=== PATIENT | male | born 1980 | race Two or more races ===

== ENCOUNTER 2018-12-28 19:07 | Inpatient (IN) | payer MEDICAID ==
[~2018-12-28] VITALS: Ht 172.7 cm; Wt 130.2 kg
--- NOTE | 2018-12-28 19:28 | Emergency Room Report ---
History of Present Illness General Chief Complaint: Chest Pain Source: Patient Present Illness HPI Patient is a 38-year-old male presented after increased chest discomfort. Patient reports having increased pleuritic type pain which had been present for approximately 1 day. This was not changed by position. Patient states this was worsened. Patient states he had associated blurring vision to the left eye. He denies any exertional change to the pain. He reports having a recent increase in hematuria blood in his ejaculate as well as some left-sided flank pain. He had noticed increased leg swelling gradual onset.Patient had prior history of hypertension but does not take any medications. He denies any prior cardiac conditions. Allergies: Coded Allergies: No Known Allergies (Unverified , 12/28/18) Patient History Past Medical History: see triage record Reviewed Nursing Documentation: PMH: Agreed; PSxH: Agreed Nursing Documentation-PMH Past Medical History: No History, Except For Hx Hypertension: Yes Review of Systems All Other Systems: negative except mentioned in HPI Physical Exam Vital Signs Date Time Temp Pulse Resp B/P (MAP) Pulse Ox O2 Delivery O2 Flow Rate FiO2 12/28/18 19:21 98.1 81 16 95 Room Air Sp02 EP Interpretation: reviewed, normal General Appearance: normal inspection, well appearing, no apparent distress, alert, GCS 15, obese Head: atraumatic Eyes: left eye Fundiscopic - no hemorrhages seen; bilateral eye PERRL ENT: normal ENT inspection, hearing grossly normal, normal voice Neck: normal inspection, full range of motion, supple, no bony tend Respiratory: normal inspection, lungs clear, normal breath sounds, no respiratory distress, no retraction, no wheezing Cardiovascular #1: regular rate, rhythm, edema Gastrointestinal: normal inspection, normal bowel sounds, non tender, soft, no guarding, no hernia Genitourinary: no CVA tenderness Musculoskeletal: normal inspection, back normal, normal range of motion Neurologic: normal inspection, alert, oriented x3, responsive, filter washer and presser III-XII nml as tested, speech normal Psychiatric: normal inspection, judgement/insight normal, mood/affect normal Skin: normal inspection, normal color, no rash Medical Decision Making Diagnostic Impression: Primary Impression: Chest pain Additional Impressions: Non-STEMI (non-ST elevated myocardial infarction) Uncontrolled hypertension ER Course Patient presented for chest pain. Differential diagnosis include was not limited to aortic dissection, hypertensive crisis, myocardial infarction among others. Patient was noted to have constant pain for approximately 24 hours. Patient reports having taken clonidine and having poorly controlled blood pressure chronically. Patient's initial troponin was noted to be positive. EKG interpreted by me showed normal sinus rhythm with left ventricular hypertrophy and nonspecific ST abnormalities. CT of the chest was ordered due to the patient's visual changes as well as chest discomfort. CT of chest read by radiology showed no acute dissection, pericardial effusion or pulmonary embolism. See full report. Patient was initially given Norvasc for blood pressure as well as nitroglycerin. He was subsequently given IV metoprolol and Vasotec. Patients visual changes were noted to improve after blood pressure improvements.Given the patient's constant chest pain and positive troponin patient will be hospitalized for possible acs. Dr. Mason Weiss was contacted for inpatient management due to panel physician. Laboratory Tests Test 12/28/18 19:35 12/28/18 21:35 12/29/18 04:35 White Blood Count 8.8 K/UL (4.8-10.8) Red Blood Count 4.93 M/UL (4.70-6.10) Hemoglobin 14.1 G/DL (14.2-18.0) L Hematocrit 40.1 % (42.0-52.0) L Mean Corpuscular Volume 81 FL (80-99) Mean Corpuscular Hemoglobin 28.5 PG (27.0-31.0) Mean Corpuscular Hemoglobin Concent 35.1 G/DL (32.0-36.0) Red Cell Distribution Width 11.9 % (11.6-14.8) Platelet Count 231 K/UL (150-450) Mean Platelet Volume 7.7 FL (6.5-10.1) Neutrophils (%) (Auto) 61.2 % (45.0-75.0) Lymphocytes (%) (Auto) 28.8 % (20.0-45.0) Monocytes (%) (Auto) 6.1 % (1.0-10.0) Eosinophils (%) (Auto) 2.9 % (0.0-3.0) Basophils (%) (Auto) 1.0 % (0.0-2.0) Prothrombin Time 10.4 SEC (9.30-11.50) Prothrombin Time INR 1.0 (0.9-1.1) PTT 26 SEC (23-33) 49 SEC (23-33) H D-Dimer 0.23 mg/L FEU (0.00-0.49) Urine Color Pale yellow Urine Appearance Clear Urine pH 5 (4.5-8.0) Urine Specific Mead 1.015 (1.005-1.035) Urine Protein Negative (NEGATIVE) Urine Glucose (UA) Negative (NEGATIVE) Urine Ketones Negative (NEGATIVE) Urine Blood 1+ (NEGATIVE) H Urine Nitrite Negative (NEGATIVE) Urine Bilirubin Negative (NEGATIVE) Urine Urobilinogen Normal MG/DL (0.0-1.0) Urine Leukocyte Esterase Negative (NEGATIVE) Urine RBC 2-4 /HPF (0 - 0) H Urine WBC 0-2 /HPF (0 - 0) Urine Squamous Epithelial Cells None /LPF (NONE/OCC) Urine Bacteria Few /HPF (NONE) Sodium Level 139 MMOL/L (136-145) Potassium Level 3.9 MMOL/L (3.5-5.1) Chloride Level 103 MMOL/L (98-107) Carbon Dioxide Level 28 MMOL/L (21-32) Anion Gap 8 mmol/L (5-15) Blood Urea Nitrogen 16 mg/dL (7-18) Creatinine 0.9 MG/DL (0.55-1.30) Estimate Glomerular Filtration Rate > 60 mL/min (>60) Glucose Level 100 MG/DL (74-106) Calcium Level 9.2 MG/DL (8.5-10.1) Total Bilirubin 0.4 MG/DL (0.2-1.0) Aspartate Amino Transferase (AST) 27 U/L (15-37) Alanine Aminotransferase (ALT) 40 U/L (12-78) Alkaline Phosphatase 113 U/L (46-116) Troponin I 0.703 ng/mL (0.000-0.056) 0.671 ng/mL (0.000-0.056) Pending Total Protein 7.4 G/DL (6.4-8.2) Albumin 3.8 G/DL (3.4-5.0) Globulin 3.6 g/dL Albumin/Globulin Ratio 1.1 (1.0-2.7) Urine Opiates Screen Negative (NEGATIVE) Urine Barbiturates Screen Negative (NEGATIVE) Phencyclidine (PCP) Screen Negative (NEGATIVE) Urine Amphetamines Screen Negative (NEGATIVE) Urine Benzodiazepines Screen Negative (NEGATIVE) Urine Cocaine Screen Negative (NEGATIVE) Urine Marijuana (THC) Screen Negative (NEGATIVE) EKG Diagnostic Results Rate: normal Rhythm: NSR ST Segments: no acute changes ASA given to the pt in ED: Yes Last Vital Signs Date Time Temp Pulse Resp B/P (MAP) Pulse Ox O2 Delivery O2 Flow Rate FiO2 12/28/18 19:21 98.1 81 16 95 Room Air Status: improved Disposition: ADMITTED INPATIENT Condition: Serious Dejon Montenegro MD December 28, 2018 19:28
[2018-12-28 19:35] VITALS: BP 201/122
--- NOTE | 2018-12-28 19:35 | NUR ---
ER Nurse Note: Pt came from home c/o mid to left sided chest pain, rated 8/10 sharp pain since 12/27. Pt stated he has an acute onset of blurry vision on left eye. Pt a&ox4, BP at triage is 200/120; ERMD aware. EKG done at on arrival. Will continue to montior
[2018-12-28 19:58] LABS: EOSINOPHILS % (AUTO) 2.9 % (0.0-3.0); HEMATOCRIT 40.1 % (42.0-52.0); HEMOGLOBIN 14.1 G/DL (14.2-18.0); LYMPHOCYTES % (AUTO) 28.8 % (20.0-45.0); MEAN CORPUSCULAR VOLUME 81 FL (80-99); MONOCYTES % (AUTO) 6.1 % (1.0-10.0); NEUTROPHILS % (AUTO) 61.2 % (45.0-75.0); PLATELET COUNT 231 K/UL (150-450); RED BLOOD COUNT 4.93 M/UL (4.70-6.10); RED CELL DISTRIBUTION WIDTH 11.9 % (11.6-14.8); WHITE BLOOD COUNT 8.8 K/UL (4.8-10.8)
[2018-12-28 20:00] VITALS: BP 190/114
[2018-12-28 20:00] LABS: ANION GAP 8 mmol/L (5-15); BLOOD UREA NITROGEN 16 mg/dL (7-18); CALCIUM 9.2 MG/DL (8.5-10.1); CARBON DIOXIDE 28 MMOL/L (21-32); CHLORIDE 103 MMOL/L (98-107); CREATININE 0.9 MG/DL (0.55-1.30); POTASSIUM 3.9 MMOL/L (3.5-5.1); SODIUM 139 MMOL/L (136-145)
[2018-12-28 20:01] LABS: APPEARANCE,URINE CLEAR; BILIRUBIN, URINE NEGATIVE (NEGATIVE); COLOR,URINE PALE YELLOW; GLUCOSE, URINE (UA) NEGATIVE (NEGATIVE); KETONES,URINE NEGATIVE (NEGATIVE); LEUKOCYTE ESTERASE ,URINE NEGATIVE (NEGATIVE); NITRITE,URINE NEGATIVE (NEGATIVE); PH,URINE 5 (4.5-8.0); PROTEIN,URINE NEGATIVE (NEGATIVE); UROBILINOGEN,URINE NORMAL MG/DL (0.0-1.0)
[2018-12-28 20:06] LABS: ALANINE AMINOTRANSFERASE 40 U/L (12-78); ALBUMIN 3.8 G/DL (3.4-5.0); ALBUMIN/GLOBULIN RATIO 1.1 (1.0-2.7); ALKALINE PHOSPHATASE 113 U/L (46-116); ASPARTATE AMINO TRANSFERASE 27 U/L (15-37); BILIRUBIN,TOTAL 0.4 MG/DL (0.2-1.0)
[2018-12-28] MEDS ORDERED: Isovue-370 150ml vial INJ PRN (20:15)
[2018-12-28 21:00] VITALS: BP 178/102
[2018-12-28] MEDS ORDERED: Aspirin Baby 81mg ORAL ONE (21:15)
[2018-12-28] MEDS ORDERED: Nitroglycerin Subl 0.4mg tab SL PRN (21:15)
[2018-12-28] MEDS ORDERED: Enalaprilat 2.5mg/2ml Inj IV ONE (21:45)
[2018-12-28 22:00] VITALS: BP 184/100
[2018-12-28] MEDS ORDERED: Metoprolol 5mg/5ml Inj IVP ONE (22:15)
[2018-12-28] MEDS ORDERED: Heparin 5000 units/ml inj IV ONE (22:30)
[2018-12-28] MEDS ORDERED: Heparin 25,000u/D5W 500ml 500 ML IV SCH (22:30)
--- NOTE | 2018-12-28 22:30 | NUR ---
ER Nurse Note: Pt wt retaken for heparin drip per pharmacy request. Pharmacy notifed of weight and recommended to change dosage from order. [facility] followed up and told Eliu that per ERMD orders, starting dose is 12 cc/hr with a wt of 132.4kg. Pt was given 5,000U of heparin IV, then started heparin drip. BP decreasing. All orders completed per ERMD orders; will continue to montior.
[2018-12-28 23:20] VITALS: BP 154/89
--- NOTE | 2018-12-28 23:20 | NUR ---
ER Nurse Note: Report given to REYNALDO Garcia for continuity of care. Pt a&ox4, VSS-BP controlled, no signs of distress. IV patent, infusing heparin 12cc/hr per ERMD orders. Left with all belongings.
[2018-12-29] VITALS: BP 145/89
--- NOTE | 2018-12-29 | NUR ---
NURSE NOTES: Received report from Oswald Min RN at 2310. Patient arrived on unit at 2320. No s/s of acute distress noted. A/O x4. Sinus rhythm on quality assurance monitor body. Saturating well on room air. Left foot soft tissue mass noted. Right AC 20g IV running heparin drip. Bed locked in lowest position with side rails up x2. Call light left within reach. Will continue to monitor. Left message for Dr. Abhishek MD for admission orders. Awaiting response.
[2018-12-29] MEDS ORDERED: CIPROFLOXACIN500 MG PO (00:55)
[2018-12-29 04:00] VITALS: BP 159/97
--- NOTE | 2018-12-29 05:35 | NUR ---
NURSE NOTES: Admission orders received from Dr. Abhishek MD. Noted and carried out.
[2018-12-29] MEDS ORDERED: Heparin 5000 units/ml inj IV SCH ×2 (06:00→20:49)
[2018-12-29] MEDS: Heparin 25,000u/D5W 500ml 500 ML IV SCH ×2 (06:18→12:41)
--- NOTE | 2018-12-29 07:15 | NUR ---
OBTAINED REPORT FROM TRUMAN JACOBS, PT RESTING IN BED FREE FROM APPARENT DISTRESS.
--- NOTE | 2018-12-29 07:15 | NUR ---
HAND-OFF: Report given to Zana Chua RN.
[2018-12-29 08:00] VITALS: BP 154/90
[2018-12-29] MEDS: Ciprofloxacin 500mg tab ORAL SCH ×2 (09:25→20:35)
[2018-12-29] MEDS: Aspirin Baby 81mg ORAL SCH (09:25)
[2018-12-29 09:26] LABS: CHOLESTEROL 137 MG/DL (< 200); HDL CHOLESTEROL 36 MG/DL (40-60); TRIGLYCERIDES 85 MG/DL (30-150)
[2018-12-29] MEDS: Nitroglycerin 2% oint pkt TOPIC SCH ×2 (09:26→18:37)
--- NOTE | 2018-12-29 10:37 | Diagnostic Imaging Report ---
Indication: Chest pain Technique: Continuous helical transaxial imaging of the chest was obtained from the thoracic inlet to the upper abdomen during rapid intravenous contrast administration. Arterial phase of enhancement obtained. Coronal 2-D reformats were also obtained and maximum intensity projection images in multiple planes. Study obtained in a Siemens sensation [address] Automatic Exposure Control was utilized. Total Dose length Product (DLP): 1428.[address] Dose Index Volume (CTDIvol): 40.83 mGy Comparison: None Findings: The pulmonary artery is well opacified and shows no filling defects. There is no adenopathy, pleural or pericardial effusions are identified. There is no aortic dissection or aneurysm identified within the chest. The lungs are clear. The liver is hypodense consistent with fatty infiltration. There is some breathing motion limiting visualization of the upper abdomen Impression: No evidence of acute CVA, aortic dissection or aneurysm. Fatty liver The CT scanner at [facility] is accredited by the [employer] and the scans are performed using dose optimization techniques as appropriate to a performed exam including Automatic Exposure control.
[2018-12-29 12:00] VITALS: BP 142/90
--- NOTE | 2018-12-29 13:00 | NUR ---
RECEIVED PHONE CALL FROM MD ADRIAN MD GIVEN FULL REPORT AND MADE AWARE OF MOST CURRENT LABS (TROPONIN). NO NEW ORDERS NOTED. MD MADE AWARE OF RESULTS OF CHEST/THORAX CTA.
--- NOTE | 2018-12-29 13:10 | NUR ---
SPOKE WITH PHARMACIST AND WAS MADE AWARE OF MOST CURRENT COAGULATION STUDIES. RN INSTRUCTED BY PHARMACIST TO HOLD HEPARIN DRIP FOR ONE HOUR AND RESTART WITH NEW RATE AT 34.4ML/HR AND PT WILL BE ON HEPARIN DRIP AT 13 UNITS/KG/HR PER PROTOCOL. TIMED PTT TO BE TAKEN 6HRS FROM TIME DRIP IS RESTARTED.
--- NOTE | 2018-12-29 14:00 | History and Physical Report ---
DATE OF ADMISSION: 12/28/2018 HISTORY OF PRESENT ILLNESS: This is a 38-year-old male, admitted with elevated blood pressure and chest discomfort. The patient has some associated blurry vision. Denies any other significant medical problems. PAST MEDICAL HISTORY: Essentially negative. MEDICATIONS: Negative. REVIEW OF SYSTEMS: Notable for possible hypertension. PHYSICAL EXAMINATION: GENERAL: A well-developed male, comfortable at present. VITAL SIGNS: Noted. Blood pressure 159/97, pulse 60, respirations 16. HEENT: Negative. NECK: Supple. LUNGS: Clear. CARDIAC: S1 and S2. Regular rate and rhythm. ABDOMEN: Soft, nontender. EXTREMITIES: No edema. LABORATORY DATA: Reviewed. Troponin is elevated on serial evaluation. IMPRESSION: Chest pain, possible non-STEMI CO, hypertension. RECOMMENDATIONS: Supportive care. Heparin drip. Cardiology evaluation. Nitrates, blood pressure support, and further intervention. Pending cardiac evaluation. Mason Weiss M.D. DR: TUNDE JOB#: [id number] CC: SACHA
[2018-12-29] MEDS ORDERED: Heparin 25,000u/D5W 500ml 500 ML IV SCH ×2 (14:15→20:50)
--- NOTE | 2018-12-29 14:30 | NUR ---
HEPARIN DRIP NOW STARTED AT 13UNITS/KG/HR, IV RATE ADJUSTED TO 34.4ML/HR PER PHARMACY PROTOCOL. PT TOLERATING IV DRIP WELL. NO SIGNS OF BLEEDING NOTED. TIMED PTT TO BE DRAWN TODAY AT 2029 PER FACILITY PROTOCOL.
[2018-12-29 16:00] VITALS: BP 140/80
--- NOTE | 2018-12-29 17:21 | NUR ---
CASE MANAGEMENT: REVIEW 38Y/M PRESENTED TO ED FROM HOME CC: CHEST PAIN . BLURRY VISION IN LEFT EYE SI: HTN CRISIS . NSTEMI T 98.1 HR 90 RR 16 BP 201/122 SAT 95% ROOM AIR TROPONIN I 0.703 IS: LASIX IV X1 NORVASC PO X1 ASA PO X1 CLONIDINE PO X1 VASOTEC IV X1 LOPRESSOR IV X1 HEPARIN IV X1 PATIENT ADMITTED TO STEP DOWN UNIT 12/28/2018 DCP: PATIENT IS FROM HOME PLAN: 2D ECHO
--- NOTE | 2018-12-29 17:52 | NUR ---
NURSE NOTES: ECHO DONE TODAY, RESULTS NOT POSTED (PENDING).
--- NOTE | 2018-12-29 19:30 | NUR ---
NURSE NOTES: GAVE FULL REPORT TO TRUMAN JACOBS. PT IN BED RESTING COMFORTABLY WITH NO SIGN OF APPARENT DISTRESS. HEPARIN DRIP VERIFIED AT END OF SHIFT WITH TRUMAN JACOBS. RATES NOTED CORRECT PER PHARMACY PROTOCOL. PT ON 13 UNITS/KG/HR AND IV RATE AT 34.437 ML/HR; NO ADVERSE REACTION NOTED FROM HEPARIN DRIP,PT TOLERATING WELL. NO SIGNS OF BLEEDING OR BRUISING NOTED. NEXT DUE PTT LAB DRAW TODAY AT 2030.
--- NOTE | 2018-12-29 19:30 | NUR ---
NURSE NOTES: Received report from Zana Chua RN. Patient is awake in bed, watching television, A/O x4. No s/s of acute distress noted. Sinus rhythm on cardiac/vascular sonographer. Saturating well on room air. Right AC 20g IV running heparin drip. Bed locked in lowest position with side rails up x2. Call light left within reach. Will continue to monitor. Family remains at bedside.
[2018-12-29 20:00] VITALS: BP 150/103
[2018-12-30] VITALS: BP 150/95
[2018-12-30 04:00] VITALS: BP 167/108
[2018-12-30 04:32] LABS: EOSINOPHILS % (AUTO) 3.9 % (0.0-3.0); HEMOGLOBIN 14.6 G/DL (14.2-18.0); LYMPHOCYTES % (AUTO) 32.2 % (20.0-45.0); MEAN CORPUSCULAR VOLUME 84 FL (80-99); MONOCYTES % (AUTO) 7.3 % (1.0-10.0); NEUTROPHILS % (AUTO) 55.6 % (45.0-75.0); PLATELET COUNT 246 K/UL (150-450); RED BLOOD COUNT 5.03 M/UL (4.70-6.10); RED CELL DISTRIBUTION WIDTH 12.4 % (11.6-14.8); WHITE BLOOD COUNT 6.9 K/UL (4.8-10.8)
[2018-12-30] MEDS ORDERED: Heparin 25,000u/D5W 500ml 500 ML IV SCH (04:45)
[2018-12-30 04:57] LABS: ANION GAP 6 mmol/L (5-15); BLOOD UREA NITROGEN 15 mg/dL (7-18); CALCIUM 8.9 MG/DL (8.5-10.1); CARBON DIOXIDE 29 MMOL/L (21-32); CHLORIDE 104 MMOL/L (98-107); CREATININE 0.9 MG/DL (0.55-1.30); POTASSIUM 3.4 MMOL/L (3.5-5.1); SODIUM 139 MMOL/L (136-145)
[2018-12-30] MEDS: Heparin 25,000u/D5W 500ml 500 ML IV SCH ×2 (05:09→17:22)
[2018-12-30 06:45] VITALS: BP 164/98
--- NOTE | 2018-12-30 07:15 | NUR ---
NURSE NOTES: Dr. Abhishek MD made aware of patient's potassium. New order received. Noted and carried out.
--- NOTE | 2018-12-30 07:25 | NUR ---
HAND-OFF: Report given to Vijaya Quinteros RN.
--- NOTE | 2018-12-30 07:30 | NUR ---
NURSE NOTES: NURSE NOTES: Report received from Karol Villeda RN.Pt still asleep but easily awaken with verbal command,denies any sob or chest pain,SR on the monitor,IV site to RAC intact with Heparin drip at 15 units/kg /hr running at 39.735 ml/hr,skin warm and dry ,SR up x2 HOB elevated,bed lock in lowest position, at bedside,will continue with plans of care.
[2018-12-30] MEDS: Aspirin Baby 81mg ORAL SCH (09:25)
[2018-12-30] MEDS: Ciprofloxacin 500mg tab ORAL SCH ×2 (09:25→21:03)
[2018-12-30] MEDS: Nitroglycerin 2% oint pkt TOPIC SCH ×2 (09:25→18:23)
--- NOTE | 2018-12-30 09:44 | General Progress Note ---
Assessment/Plan Assessment/Plan: possible NSTEMI elevated troponin low HDL PLAN await cardiology called Dr. Nieto 12/30 same for now impression, plan, and exam edited and reviewed in detail care discussed with RN Subjective Allergies: Coded Allergies: No Known Allergies (Unverified , 12/28/18) Subjective NAD Objective Last 24 Hour Vital Signs Date Time Temp Pulse Resp B/P (MAP) Pulse Ox O2 Delivery O2 Flow Rate FiO2 12/30/18 09:25 164/98 12/30/18 08:00 67 12/30/18 06:45 164/98 (120) 12/30/18 05:01 167/108 12/30/18 04:00 71 12/30/18 04:00 Room Air 12/30/18 04:00 97.5 66 18 167/108 (127) 98 12/30/18 00:00 97.9 74 18 150/95 (113) 96 12/30/18 00:00 Room Air 12/29/18 23:34 71 12/29/18 20:00 98.2 81 20 150/103 (119) 98 12/29/18 20:00 Room Air 12/29/18 19:25 83 12/29/18 18:37 149/90 12/29/18 16:00 98.6 70 20 140/80 (100) 100 12/29/18 16:00 Room Air 12/29/18 16:00 77 12/29/18 12:00 98.0 73 18 142/90 (107) 100 12/29/18 12:00 71 12/29/18 12:00 Room Air Intake and Output 12/29/18 12/30/18 19:00 07:00 Intake Total 900 ml 495.52381 ml Output Total 0 ml Balance 900 ml 495.12645 ml Intake Oral 900 ml 100 ml IV Total 395.76502 ml Output Stool Total 0 ml # Voids 5 2 Laboratory Tests 12/29/18 12:15: Activated Partial Thromboplast Time 131H 12/29/18 14:10: Troponin I 0.632H 12/29/18 20:25: Activated Partial Thromboplast Time 46H 12/29/18 22:10: Troponin I 0.554H 12/30/18 03:35: White Blood Count 6.9, Red Blood Count 5.03, Hemoglobin 14.6, Hematocrit 42.0, Mean Corpuscular Volume 84, Mean Corpuscular Hemoglobin 29.0, Mean Corpuscular Hemoglobin Concent 34.7, Red Cell Distribution Width 12.4, Platelet Count 246, Mean Platelet Volume 8.4, Neutrophils (%) (Auto) 55.6, Lymphocytes (%) (Auto) 32.2, Monocytes (%) (Auto) 7.3, Eosinophils (%) (Auto) 3.9H, Basophils (%) (Auto ) 1.0, Activated Partial Thromboplast Time 100H, Sodium Level 139, Potassium Level 3.4L, Chloride Level 104, Carbon Dioxide Level 29, Anion Gap 6, Blood Urea Nitrogen 15, Creatinine 0.9, Estimat Glomerular Filtration Rate > 60, Glucose Level 111H, Calcium Level 8.9 Height (Feet): 5 Height (Inches): 8.00 Weight (Pounds): 292 Objective WDWN NAD clear breath sounds bilaterally without rhonchi or wheeze [id number] without MRG NABS nontender no HSM no CCE nonfocal Mason Weiss MD December 30, 2018 09:44
[2018-12-30 12:00] VITALS: BP 159/102
[2018-12-30 16:00] VITALS: BP 155/114
--- NOTE | 2018-12-30 16:00 | NUR ---
NURSE NOTES: Dr Bee at bedside,ordered a Lexiscan Myoview Stress test in am.Dr Bee discussed procedure with pt,verbalized understanding.
--- NOTE | 2018-12-30 16:08 | Cardiology Progress Note ---
Assessment/Plan Assessment/Plan The patient is seen and examined, full consult note is dictated. Objective Last 24 Hour Vital Signs Date Time Temp Pulse Resp B/P (MAP) Pulse Ox O2 Delivery O2 Flow Rate FiO2 12/30/18 12:00 Room Air 12/30/18 12:00 84 12/30/18 12:00 97.9 78 20 159/102 (121) 94 12/30/18 09:25 164/98 12/30/18 09:00 Room Air 12/30/18 08:00 67 12/30/18 06:45 164/98 (120) 12/30/18 05:01 167/108 12/30/18 04:00 71 12/30/18 04:00 Room Air 12/30/18 04:00 97.5 66 18 167/108 (127) 98 12/30/18 00:00 97.9 74 18 150/95 (113) 96 12/30/18 00:00 Room Air 12/29/18 23:34 71 12/29/18 20:00 98.2 81 20 150/103 (119) 98 12/29/18 20:00 Room Air 12/29/18 19:25 83 12/29/18 18:37 149/90 Intake and Output 12/29/18 12/30/18 19:00 07:00 Intake Total 900 ml 535.93421 ml Output Total 0 ml Balance 900 ml 535.09165 ml Intake Oral 900 ml 100 ml IV Total 435.46323 ml Output Stool Total 0 ml # Voids 5 2 Laboratory Tests Test 12/29/18 20:25 12/29/18 22:10 12/30/18 03:35 12/30/18 11:15 Activated Partial Thromboplast Time 46 SEC (23-33) H 100 SEC (23-33) H 70 SEC (23-33) H Troponin I 0.554 ng/mL (0.000-0.056) White Blood Count 6.9 K/UL (4.8-10.8) Red Blood Count 5.03 M/UL (4.70-6.10) Hemoglobin 14.6 G/DL (14.2-18.0) Hematocrit 42.0 % (42.0-52.0) Mean Corpuscular Volume 84 FL (80-99) Mean Corpuscular Hemoglobin 29.0 PG (27.0-31.0) Mean Corpuscular Hemoglobin Concent 34.7 G/DL (32.0-36.0) Red Cell Distribution Width 12.4 % (11.6-14.8) Platelet Count 246 K/UL (150-450) Mean Platelet Volume 8.4 FL (6.5-10.1) Neutrophils (%) (Auto) 55.6 % (45.0-75.0) Lymphocytes (%) (Auto) 32.2 % (20.0-45.0) Monocytes (%) (Auto) 7.3 % (1.0-10.0) Eosinophils (%) (Auto) 3.9 % (0.0-3.0) H Basophils (%) (Auto) 1.0 % (0.0-2.0) Sodium Level 139 MMOL/L (136-145) Potassium Level 3.4 MMOL/L (3.5-5.1) L Chloride Level 104 MMOL/L (98-107) Carbon Dioxide Level 29 MMOL/L (21-32) Anion Gap 6 mmol/L (5-15) Blood Urea Nitrogen 15 mg/dL (7-18) Creatinine 0.9 MG/DL (0.55-1.30) Estimat Glomerular Filtration Rate > 60 mL/min (>60) Glucose Level 111 MG/DL (74-106) H Calcium Level 8.9 MG/DL (8.5-10.1) Ricardo Nieto MD December 30, 2018 16:08
--- NOTE | 2018-12-30 16:13 | NUR ---
CASE MANAGEMENT: REVIEW SI: HTN CRISIS . NSTEMI T 97.9 HR 78 RR 20 BP 369630 SAT 94% ROOM AIR TROPONIN I 0.554 IS: HEPARIN GTT CIPRO PO Q12HR PROTONIX PO QD ASA PO QD NITRO -BID TOPICAL BID K-DUR 40mEq PO X1 STEP DOWN UNIT STATUS DCP: PATIENT IS FROM HOME
[2018-12-30] MEDS ORDERED: Lexiscan 0.4mg/5ml syringe IV PRN (16:19)
[2018-12-30] MEDS: Hyzaar 50-12.5mg tab ORAL SCH (16:59)
--- NOTE | 2018-12-30 19:10 | NUR ---
HAND-OFF: Report given to Jami Hanson RN,pt resting in bed no distress presented,stable,son at bedside..
--- NOTE | 2018-12-30 19:20 | NUR ---
NURSE NOTES: Received patient from Mary Quinteros RN. Patient is awake and oriented x4, able to make needs known. Patient is on room air showing no signs of distress. IV site is Right AC 20g receiving Heparin drip at 15u/kg/hr currently at 39.735ml/hr. Bed is locked, placed in lowest position, side rails up x2, call light within reach. All needs attended to, will continue to monitor.
[2018-12-30 20:00] VITALS: BP 149/75
--- NOTE | 2018-12-30 20:00 | Consultation ---
DATE OF CONSULTATION: 12/30/2018 CARDIOLOGY CONSULTATION CONSULTING PHYSICIAN: Ricardo Nieto M.D. REFERRING PHYSICIAN: Mason Weiss M.D. REASON FOR CONSULTATION: Management of elevated troponin I level in a patient with accelerated hypertension. HISTORY OF PRESENT ILLNESS: The patient is a very unfortunate 38-year-old gentleman, who presents to the hospital with increased chest discomfort and blurred vision, was found to have significantly elevated blood pressure measured at 201/122 in the emergency department. His heart rate was 81. A 12-lead electrocardiogram showed sinus rhythm with LVH and lateral wall ST and T segment abnormalities suggestive of possible LVH, repolarization abnormalities. There was no clear-cut ischemic changes. The patient underwent chest CTA, which ruled out aortic dissection and pulmonary embolism. He was admitted to [facility] for further evaluation and management. The patient states that he was on medication and as he started to play basketball he decided to discontinue all the medications. He was not watching salt in diet on a regular basis and and does not follow routine physical activity. PAST MEDICAL HISTORY: 1. Hypertension. 2. Morbid obesity. PAST SURGICAL HISTORY: None. FAMILY HISTORY: Hypertension runs in the first-degree relatives. No premature coronary artery disease in first-degree relatives. ALLERGIES: No known drug allergies. SOCIAL HISTORY: Habits, denies any tobacco, alcohol, or illicit drug use. REVIEW OF SYSTEMS: A 12-system review done essentially negative except what was mentioned in history of present illness. PHYSICAL EXAMINATION: VITAL SIGNS: Blood pressure was 201/122, heart rate 90, respirations 16, O2 saturation 94% on room air, and temperature 98.1 degrees Fahrenheit. GENERAL: The patient is a pleasant 38-year-old obese gentleman, in no apparent respiratory distress. Alert and awake x4. HEENT: Atraumatic and normocephalic. Anicteric. Pupils are equal, round, and reactive to light and accommodation. Extraocular muscles intact. NECK: JVP less than 5 cm. No carotid bruit. Carotid upstrokes 2+ bilaterally. CARDIOVASCULAR: Normal S1, S2. Regular rate and rhythm. No murmurs, gallops, or rubs. PMI is at fourth intercostal space in the midclavicular line. LUNGS: Clear to auscultation bilaterally. ABDOMEN: Soft, nontender, and nondistended. No hepatosplenomegaly. Positive bowel sounds. EXTREMITIES: No evidence of edema, clubbing, or cyanosis. LABORATORY FINDINGS: Sodium is 139, potassium 3.9, chloride 103, bicarbonate 28, BUN 16, and creatinine 0.9. Glucose is 100. Calcium is 9.2. Troponin I was 0.67, 0.65, 0.63 and 0.554. Triglycerides 85, total cholesterol 137, LDL 93, and HDL 36. INR was 1.0. Toxicology was negative. WBC 8.8, hemoglobin 14.1, hematocrit 40.1, and platelet count 231. ASSESSMENT AND PLAN: The patient is a very unfortunate 38-year-old gentleman, seen in Cardiology consultation. 1. Slight elevation of troponin I level could be secondary to type 2 non-ST elevation myocardial infarction, as there is no clear-cut evidence of ischemia on the 12-lead electrocardiogram. This could be secondary to LV strain. Given the fact that the troponin rise is plateaued and flat pattern is seen, which is not quite typical for an acute coronary syndrome due to acute plaque rupture. We will like to proceed with pharmacological stress myocardial perfusion imaging study on Monday to rule out obstructive CAD. 2. Accelerated hypertension. The patient was started on amlodipine and losartan/hydrochlorothiazide. Education was given to the patient in regards to be compliant with the medication and make changes in his lifestyle. A 2-D echocardiography reviewed that showed essentially hypertensive heart disease with left ventricular hypertrophy, and mild mitral regurgitation. However, left ventricular systolic function appears to be within normal limits. LVEF approximately 65%, mitral inflow reveals probably pseudonormal LV physiology consistent with moderately elevated left atrial pressure. 3. Dyslipidemia with low HDL. I would like to thank Dr. Weiss for courtesy of this consultation. Ricardo Nieto M.D. DR: ERA JOB#: [id number] CC:
--- NOTE | 2018-12-30 20:07 | NUR ---
NURSE NOTES: Pt's K level 3.4,Kdur 40 meq given.
[2018-12-31] VITALS (8 sets, daily range): BP systolic 132–192; BP diastolic 72–126
--- NOTE | 2018-12-31 05:17 | NUR ---
Patient's PTT is 76 SEC, confirmed with Shelly from Pharmacy pipeline, keep Heparin drip at same rate of 15u/kg/hr (39.735ml/hr).
[2018-12-31] MEDS: Heparin 25,000u/D5W 500ml 500 ML IV SCH (06:33)
--- NOTE | 2018-12-31 07:29 | NUR ---
HAND-OFF: Report given to Renuka JACOBS. Patient is asleep and showing no signs of distress.
--- NOTE | 2018-12-31 07:30 | NUR ---
NURSE NOTES: Received patient in bed. Asleep, easy to arouse. Family at bedside. Patient is with ongoing heparin drip per pharmacy protocol. No chest pain. For cardiac stress test, reminded patient to avoid soda, tea and caffeine.
--- NOTE | 2018-12-31 08:03 | General Progress Note ---
Assessment/Plan Assessment/Plan: possible NSTEMI elevated troponin low HDL PLAN await cardiology stress test and dc pending same for now impression, plan, and exam edited and reviewed in detail care discussed with RN Subjective Allergies: Coded Allergies: No Known Allergies (Unverified , 12/28/18) Subjective NAD Objective Last 24 Hour Vital Signs Date Time Temp Pulse Resp B/P (MAP) Pulse Ox O2 Delivery O2 Flow Rate FiO2 12/31/18 04:00 Room Air 12/31/18 04:00 97.0 72 20 149/96 (113) 98 12/31/18 03:33 68 12/31/18 00:00 97.7 73 18 132/72 (92) 98 12/31/18 00:00 Room Air 12/30/18 23:21 77 12/30/18 20:00 98.2 83 20 149/75 (99) 97 12/30/18 20:00 Room Air 12/30/18 19:04 87 12/30/18 18:23 155/114 12/30/18 17:00 80 155/114 12/30/18 16:59 155/114 12/30/18 16:01 Room Air 12/30/18 16:00 Room Air 12/30/18 16:00 99.0 80 20 155/114 (128) 94 12/30/18 16:00 78 12/30/18 12:00 Room Air 12/30/18 12:00 84 12/30/18 12:00 97.9 78 20 159/102 (121) 94 12/30/18 09:25 164/98 12/30/18 09:00 Room Air Intake and Output 12/30/18 12/31/18 19:00 07:00 Intake Total 4357.615 ml 654.965 ml Output Total 1 ml Balance 4356.615 ml 654.965 ml Intake Oral 4000 ml 200 ml IV Total 357.615 ml 454.965 ml Output Stool Total 1 ml # Voids 5 3 # Bowel Movements 1 Laboratory Tests 12/30/18 11:15: Activated Partial Thromboplast Time 70H 12/31/18 04:00: Activated Partial Thromboplast Time 76H Height (Feet): 5 Height (Inches): 8.00 Weight (Pounds): 292 Objective WDWN NAD clear breath sounds bilaterally without rhonchi or wheeze [id number] without MRG NABS nontender no HSM no CCE nonfocal Mason Weiss MD December 31, 2018 08:03
[2018-12-31] MEDS: Nitroglycerin 2% oint pkt TOPIC SCH ×2 (09:00→17:08)
[2018-12-31] MEDS: Hyzaar 50-12.5mg tab ORAL SCH (09:00)
[2018-12-31] MEDS: Ciprofloxacin 500mg tab ORAL SCH ×2 (09:40→20:44)
[2018-12-31] MEDS: Aspirin Baby 81mg ORAL SCH (09:40)
--- NOTE | 2018-12-31 11:17 | NUR ---
NURSE NOTES: latest blood pressure of 192/126. Left message to Dr. Nieto, awaiting for call back.
--- NOTE | 2018-12-31 11:38 | NUR ---
NURSE NOTES: Dr. Nieto called back, with order to discontinue Hyzaar, and to give losartan 50mg x1 and to give chlorthalidone 25 x1. And to change clonidine order to 0.1mg every 8 hours for SBP above 160. Cancel stress test today.
[2018-12-31] MEDS ORDERED: Losartan 50mg tab ORAL SCH (11:45)
--- NOTE | 2018-12-31 15:59 | NUR ---
CARPET TILE LAYERGUNITE MIXER SI:NSTEMI . ELEVATED TROPONIN VS: BP 192/126, P 77, T 98.2, RR 22, SpO2 98 APTT 76 IS:COZAAR 50mg CHLORTHALIDONE 25mg HEPARIN 500ml IV SDU STATUS
--- NOTE | 2018-12-31 19:10 | NUR ---
HAND-OFF: Report given to Sirena Jett RN.
--- NOTE | 2018-12-31 19:11 | NUR ---
NURSE NOTES: Received bedside report from REYNALDO Grayson.Patient stable,no c/o pain,no respiratory distress noted,A&Ox4,SR on cardiac nurse practitioner,pt ambulatory stable,using toilet,BS active in all quadrants,IV asymptomatic intact on R AC G20 SL,family at bedside,bed secured in a low safety position,call light within a reach,will colntinue to monitor and follow POC.
--- NOTE | 2018-12-31 19:32 | Cardiology Report ---
APPROVED REPORT EKG Measurement Heart [id number] Normal sinus rhythm Left ventricular hypertrophy with repolarization abnormality Abnormal ECG
--- NOTE | 2018-12-31 19:39 | Cardiology Report ---
APPROVED REPORT EKG Measurement Heart [id number] [place] [id number] Normal sinus rhythm Left ventricular hypertrophy with QRS widening and repolarization abnormality Abnormal ECG
--- NOTE | 2018-12-31 19:39 | Cardiology Report ---
APPROVED REPORT EKG Measurement Heart [id number] [place] 164P3 [id number] Normal sinus rhythm Left ventricular hypertrophy with repolarization abnormality Abnormal ECG
--- NOTE | 2018-12-31 20:20 | Cardiology Report ---
APPROVED REPORT EXAM: Two-dimensional and M-mode echocardiogram with Doppler and color Doppler. INDICATION Chest Pain M-Mode DIMENSIONS IVSd1.2 (0.7-1.1cm)Left Atrium (MM)3.6 (1.6-4.0cm) LVDd6.5 (3.5-5.6cm)Aortic Root4.0 (2.0-3.7cm) PWd1.1 (0.7-1.1cm)Aortic Cusp Exc.2.5 (1.5-2.0cm) IVSs1.3 cm LVDs5.3 (2.5-4.0cm) PWs1.4 cm Technically difficult study due to pt's body habitus . Normal left ventricular size. Left ventricular ejection fraction estimated to be 50%. Mild left ventricular hypertrophy . No evidence of pericardial effusion. All other cardiac chamber sizes are within normal limits. Aortic valve calcification with normal cusp excursion . Mildly thickened mitral valve leaflets with normal excursion. Mild mitral annulus and aortic root calcification. Pulmonic valve not well visualized. A color flow and spectral Doppler study was performed and revealed: Trace aortic insufficiency . Mitral inflow indicates normal left ventricular diastolic function. Mild mitral regurgitation. Mild tricuspid regurgitation. Tricuspid systolic velocities suggests peak right ventricular systolic pressure of 20mmHg.
--- NOTE | 2018-12-31 23:35 | Cardiology Progress Note ---
Assessment/Plan Assessment/Plan The patient is seen and examined, full consult note is dictated. Subjective Subjective Sinus rhythm at rate of 88. Objective Last 24 Hour Vital Signs Date Time Temp Pulse Resp B/P (MAP) Pulse Ox O2 Delivery O2 Flow Rate FiO2 12/31/18 20:00 Room Air 12/31/18 20:00 97.9 88 20 150/108 (122) 98 12/31/18 19:25 87 12/31/18 19:00 145/96 (112) 12/31/18 17:08 172/121 12/31/18 17:08 172/121 12/31/18 16:00 98.8 84 22 172/121 (138) 97 12/31/18 16:00 Room Air 12/31/18 15:24 87 12/31/18 13:14 155/104 (121) 12/31/18 12:11 192/126 12/31/18 12:00 Room Air 12/31/18 11:34 77 12/31/18 11:17 98.2 71 21 192/126 (148) 98 12/31/18 08:00 97.9 77 22 179/99 (125) 98 12/31/18 08:00 Room Air 12/31/18 07:31 70 12/31/18 04:00 Room Air 12/31/18 04:00 97.0 72 20 149/96 (113) 98 12/31/18 03:33 68 12/31/18 00:00 97.7 73 18 132/72 (92) 98 12/31/18 00:00 Room Air Intake and Output 12/30/18 12/31/18 18:59 06:59 Intake Total 4357.615 ml 676.820 ml Output Total 1 ml Balance 4356.615 ml 676.820 ml Intake Oral 4000 ml 200 ml IV Total 357.615 ml 476.820 ml Output Stool Total 1 ml # Voids 5 3 # Bowel Movements 1 2D Echo: LVEF 50%, RVSP 20 mmHg, MIid MR Laboratory Tests Test 12/31/18 04:00 Activated Partial Thromboplast Time 76 SEC (23-33) H Ricardo Nieto MD December 31, 2018 23:35
[2019-01-01] VITALS: BP 138/97
[2019-01-01 04:00] VITALS: BP 134/70
--- NOTE | 2019-01-01 07:18 | NUR ---
HAND-OFF: Report given to REYNALDO winters.Patient stable,sleeping.
[2019-01-01 08:00] VITALS: BP 169/107
--- NOTE | 2019-01-01 08:15 | NUR ---
NURSE NOTES: received pt in the bed, awake, alert, oriented, BP 169/107, medicated with BP medication, pt for cardiac stress test today, no co chest pain, no SOB, skin warm and dry to touch, bed in low position, call light within reach.
[2019-01-01] MEDS: Aspirin Baby 81mg ORAL SCH (08:47)
[2019-01-01] MEDS: Ciprofloxacin 500mg tab ORAL SCH (08:48)
[2019-01-01] MEDS: Nitroglycerin 2% oint pkt TOPIC SCH (08:49)
--- NOTE | 2019-01-01 08:58 | General Progress Note ---
Assessment/Plan Assessment/Plan: possible NSTEMI elevated troponin low HDL PLAN await cardiology clearance stress test results not available same for now impression, plan, and exam edited and reviewed in detail care discussed with RN Subjective Allergies: Coded Allergies: No Known Allergies (Unverified , 12/28/18) Subjective NAD Objective Last 24 Hour Vital Signs Date Time Temp Pulse Resp B/P (MAP) Pulse Ox O2 Delivery O2 Flow Rate FiO2 01/01/19 08:49 169/107 01/01/19 08:48 169/107 01/01/19 08:00 98.0 75 22 169/107 (127) 98 01/01/19 08:00 Room Air 01/01/19 04:00 98.2 70 20 134/70 (91) 98 01/01/19 04:00 Room Air 01/01/19 03:23 68 01/01/19 00:00 98.2 71 20 138/97 (111) 98 01/01/19 00:00 Room Air 12/31/18 23:35 75 12/31/18 20:00 Room Air 12/31/18 20:00 97.9 88 20 150/108 (122) 98 12/31/18 19:25 87 12/31/18 19:00 145/96 (112) 12/31/18 17:08 172/121 12/31/18 17:08 172/121 12/31/18 16:00 98.8 84 22 172/121 (138) 97 12/31/18 16:00 Room Air 12/31/18 15:24 87 12/31/18 13:14 155/104 (121) 12/31/18 12:11 192/126 12/31/18 12:00 Room Air 12/31/18 11:34 77 12/31/18 11:17 98.2 71 21 192/126 (148) 98 Intake and Output 12/31/18 01/01/19 19:00 07:00 Intake Total 1382.815 ml 550 ml Balance 1382.815 ml 550 ml Intake Oral 1000 ml 550 ml IV Total 382.815 ml # Voids 5 3 # Bowel Movements 2 Height (Feet): 5 Height (Inches): 8.00 Weight (Pounds): 286 Objective WDWN NAD clear breath sounds bilaterally without rhonchi or wheeze [id number] without MRG NABS nontender no HSM no CCE nonfocal Mason Weiss MD January 01, 2019 08:58
[2019-01-01] MEDS ORDERED: Losartan 50mg tab ORAL SCH (09:00)
[2019-01-01 11:53] VITALS: BP 164/102
[2019-01-01] MEDS ORDERED: HydrALAZINE 50mg tab ORAL SCH (14:00)
--- NOTE | 2019-01-01 14:10 | NUR ---
NURSE NOTES: stress test done, Lexiscan given by [employer].
--- NOTE | 2019-01-01 14:12 | NUR ---
NURSE NOTES: BP still high , dr. Nieto aware, ordered more BP medication.
--- NOTE | 2019-01-01 14:34 | NUR ---
Myocardial Perfusion Scan complete.
--- NOTE | 2019-01-01 15:03 | Diagnostic Imaging Report ---
Indication: chest pain Technique: The study was conducted under the supervision of a housing quality standard inspector. lexiscan (regadenoson) infusion over 10 seconds followed by intravenous administration of 30.3 mCi of technetium 99m Myoview was performed. Three plane SPECT imaging of the heart was then performed. A resting study was performed as part of the one-day protocol with 10.9 mCi of technetium 99m myoview injected intravenously at that time. Three plane SPECT imaging of the heart was obtained. Comparison: None Clinical data: 1. Clinical response: Non ischemic 2. Electrocardiographic response: Non ischemic Findings: The myocardial perfusion scan demonstrates LVEF 48%. There is attenuation of the inferior wall. No definite fixed or reversible perfusion defects are identified. IMPRESSION: No evidence of myocardial ischemia. LVEF 48%
--- NOTE | 2019-01-01 15:20 | NUR ---
RD ASSESSMENT & RECOMMENDATIONS SEE CARE ACTIVITY FOR COMPLETE ASSESSMENT DAILY ESTIMATED NEEDS: Needs based on CARDIAC, OBESITY, 93kg abw 20-22 kcals/kg 0013-4822 total kcals 1-1.3 g protein/kg 93-121 g total protein 20-22 mL/kg 4933-3430 total fluid mLs NUTRITION DIAGNOSIS: Altered nutrition related lab values R/T cardiac hx as evidenced by elev troponin, HTN w/ elev BPs (171/119, 164/102), low HDL (36). CURRENT DIET:CARDIAC PO DIET RECOMMENDATIONS: Maintain CARDIAC diet ADDITIONAL RECOMMENDATIONS: * Standing wt for accurate CBW * Monitor lytes, replete as needed (low K)
[2019-01-01 16:00] VITALS: BP 147/102
--- NOTE | 2019-01-01 16:24 | NUR ---
ELECTRICAL LINEMANRESPIRATORY THERAPY MANAGER SI:HYPERTENSIVE CRISIS . NSTEMI VS: BP 171/119, P 90, T 98.5, RR 22, SpO2 97 IS: NORVASC 5mg APRESOLINE 50mg CLONIDINE 0.1mg CIPROFLOXACIN 500mg COZAAR 50mg CHLORTHALIDONE 25mg SDU STATUS
--- NOTE | 2019-01-01 18:04 | NUR ---
NURSE NOTES: pt discharge home as ordered, discharge instruction given, condition stable.
--- NOTE | 2019-01-01 20:50 | Cardiology Progress Note ---
Assessment/Plan Assessment/Plan 1. Slight elevation of troponin I level could be secondary to type 2 non-ST elevation myocardial infarction, stress test revealed no myocardial ischemia. 2. Accelerated hypertension. Continue with the current anti-hypertensive meds. 3. Dyslipidemia with low HDL. Encouraged exercise and dietary changes. Subjective Subjective Sinus rhythm at rate of 92. s/p nuclear stress test. Objective Last 24 Hour Vital Signs Date Time Temp Pulse Resp B/P (MAP) Pulse Ox O2 Delivery O2 Flow Rate FiO2 01/01/19 16:00 92 01/01/19 16:00 98.2 88 22 147/102 (117) 98 01/01/19 16:00 Room Air 01/01/19 15:01 98.5 01/01/19 14:28 86 171/119 01/01/19 14:27 171/119 01/01/19 12:00 Room Air 01/01/19 12:00 86 01/01/19 11:53 98.5 90 22 164/102 (122) 97 01/01/19 11:08 164/102 01/01/19 08:49 169/107 01/01/19 08:48 169/107 01/01/19 08:00 98.0 75 22 169/107 (127) 98 01/01/19 08:00 Room Air 01/01/19 08:00 73 01/01/19 04:00 98.2 70 20 134/70 (91) 98 01/01/19 04:00 Room Air 01/01/19 03:23 68 01/01/19 00:00 98.2 71 20 138/97 (111) 98 01/01/19 00:00 Room Air 12/31/18 23:35 75 Intake and Output 12/31/18 01/01/19 19:00 07:00 Intake Total 1382.815 ml 550 ml Balance 1382.815 ml 550 ml Intake Oral 1000 ml 550 ml IV Total 382.815 ml # Voids 5 3 # Bowel Movements 2 2D Echo: LVEF 50%, RVSP 20 mmHg, MIid MR Laboratory Tests Test 01/01/19 09:50 Troponin I 0.407 ng/mL (0.000-0.056) Objective HEENT: Atraumatic and normocephalic. Anicteric. Pupils are equal, round, and reactive to light and accommodation. Extraocular muscles intact. NECK: JVP less than 5 cm. No carotid bruit. Carotid upstrokes 2+ bilaterally. CARDIOVASCULAR: Normal S1, S2. Regular rate and rhythm. No murmurs, gallops, or rubs. PMI is at fourth intercostal space in the midclavicular line. LUNGS: Clear to auscultation bilaterally. ABDOMEN: Soft, nontender, and nondistended. No hepatosplenomegaly. Positive bowel sounds. EXTREMITIES: No evidence of edema, clubbing, or cyanosis. Ricardo Nieto MD January 01, 2019 20:50
--- NOTE | 2019-01-04 13:54 | Discharge Summary ---
Discharge Summary Discharge Summary _ , DATE OF ADMISSION: 12/28/2018 DATE OF DISCHARGE: 01/01/2019 Dr. Weiss DISCHARGED BY: Dr. Weiss REASON FOR ADMISSION: 38 years old male morbidly obese, with past medical history of hypertension, presented to emergency department with chest discomfort. Patient reported pleuritic type of pain , present for about 1 day. Chest pain did not change with position , but worsened in quality. Patient reported associated blurred vision in left eye. He denied exertional component to the pain. He reported hematuria in his ejaculation . He noted increased leg swelling. Patient reported a prior history of hypertension, but did not take any antihypertensive medication. He denied prior cardiac condition. Upon evaluation vital signs revealed severely elevated blood pressure 201/122. Pulse oximetry was stable on room air. Laboratory work-up revealed no leukocytosis, stable hemoglobin and hematocrit. D-dimer- 0.23. Stable coagulation profile. Urinalysis revealed +1 blood, no evidence of UTI. Stable electrolytes and renal parameters. Glucose 100. Stable LFT. Troponin - 0.703. EKG revealed normal sinus rhythm, no acute ischemic changes. Urine toxicology screen was negative. CTA of the chest demonstrated no evidence of acute PE, aortic dissection or aneurysm. Fatty liver noted. Patient subsequently was admitted to stepdown unit for further management. CONSULTANTS: bale piler Dr. Nieto [facility] COURSE: Patient admitted to direct observational unit. Patient started on heparin drip. Cardiology evaluation was requested. Patient started on antiplatelet therapy and nitrates. Patient started on antihypertensive regimen to bring blood pressure under control. Trim Machine Adjuster seen and evaluated patient. Troponin trending down; last troponin - 0.407. Echocardiogram revealed preserved ejection fraction of 50%. Normal left ventricular size. Mild left ventricular hypertrophy. No evidence of pericardial effusion. No evidence of wall motion abnormality. Right ventricular systolic pressure of 20. Myocardial perfusion scan demonstrated ejection fraction of 48%. There was attenuation of the inferior wall. No definite fixed or reversible perfusion defects were identified. No evidence of myocardial ischemia. Patient remained in sinus rhythm on telemetry, no evidence of arrhythmia. Blood pressure was managed with multiply regimen of antihypertensive, including calcium channel tere , hydralazine , angiotensin receptor tere and chlorthalidone. Additionally clonidine was on board as needed. Blood pressure was slowly improving. Patient will need further optimization of antihypertensive regimen. Compliance with antihypertensive regimen was reinforced. Lipid panel revealed low HDL. Patient was educated to encourage exercise and dietary changes. Hemoglobin and hematocrit were closely monitored and remained stable. Renal parameters and electrolytes were closely monitored Potassium replaced. Pain management was addressed. Supportive care provided. Patient clinically stabilized and was ready for discharge home. FINAL DIAGNOSES: Chest pain Elevated troponin Possible NSTEMI Hypertensive urgency- resolved Dyslipidemia with low HDL Morbid obesity with BMI 43.6 DISCHARGE MEDICATIONS: List of medication was sent with patient DISCHARGE INSTRUCTIONS: Patient was discharged home . Follow up with primary care provider in one week. I have been assigned to dictate discharge summary for this account. I was not involved in the patient's management. Azeb Mehta NP January 04, 2019 13:54
== END 2019-01-01 18:02 | disposition home or self-care (01) | DRG 190 ==
LOC: EMR 21:24 → 2W 21:38 → EDBEDREQSVC 22:17 → EDBEDREQTM 22:17 → EDBEDREQ 22:17 → 2W 23:13
DX: I21.4 Non-ST elevation (NSTEMI) myocardial infarction (principal); E66.01 Morbid (severe) obesity due to excess calories; I16.0 Hypertensive urgency; Z68.41 Body mass index [BMI] 40.0-44.9, adult; E78.5 Hyperlipidemia, unspecified
CPT/HCPCS: 36415; 71275; 78452; 80048; 80053; 80061; 80307; 81001; 84484; 85025; 85379; 85610; 85730; 93005; 93017; 93306; 96374; 96375; 99285; J2785; J8499